=== PATIENT | female | born 1960 | race Caucasian/White ===

== ENCOUNTER 2019-09-17 17:23 | Observation (INO) | payer BC ==
[2019-09-17 18:29] LABS: Hemoglobin 15.3 g/dL (12.0-16.0); Mean Corpuscular Hemoglobin 31.7 pg (27.0-31.0); Mean Corpuscular Volume 90.5 fL (78.0-98.0); RBC Distribution Width 11.5 % (11.5-14.5); Red Blood Cell (RBC) Count 4.84 mill/uL (4.20-5.40); White Blood Cell (WBC) Count 10.7 thou/uL (4.8-10.8)
[2019-09-17 18:30] LABS: #Basophils 0.1 thou/uL (0.0-0.2); #Eosinphils 0.1 thou/uL (0.0-0.7); #Lymphocytes 3.6 thou/uL (1.20-3.40); #Monocytes 0.8 thou/uL (0.11-0.59); #Neutrophils 6.1 thou/uL (1.40-6.50); %Basophils 0.6 % (0.0-1.0); %Eosinophils 0.9 % (0.0-10.0); %Lymphocytes 33.9 % (21.0-51.0); %Monocytes 7.8 % (0.0-10.0); %Neutrophils 56.8 % (42.0-75.0)
[2019-09-17 18:44] LABS: ALT (SGPT) 25 U/L (8-55); AST (SGOT) 23 U/L (5-34); Albumin 4.6 g/dL (3.5-5.0); Alkaline Phosphatase 107 U/L (40-110); Anion Gap 15 mmol/L (10-20); BUN (Urea Nitrogen) 16 mg/dL (9.8-20.1); Bilirubin, Total 0.6 mg/dL (0.2-1.2); Calc. Creatinine Clearance 0 mL/min (70-130); Calcium 9.5 mg/dL (7.8-10.44); Carbon Dioxide 27 mmol/L (22-29); Chloride 105 mmol/L (98-107); Estimated GFR-MDRD 45; Globulin 2.7 g/dL (2.4-3.5); Glucose 86 mg/dL (70-105); Potassium 4.4 mmol/L (3.5-5.1); Protein, Total 7.3 g/dL (6.0-8.3); Sodium 143 mmol/L (136-145)
--- NOTE | 2019-09-17 18:45 | RAD ---
FRONTAL RADIOGRAPH CHEST: Date: 09-17-2019 Comparison: 04-15-12 History: Palpitations, chest pressure. FINDINGS: Heart and mediastinal contours are stable. There is an old right clavicle fracture. No focal consolid ation or alveolar edema. IMPRESSION: No acute findings. POS: TRACIE
[2019-09-17 19:03] LABS: Large Platelets MODERATE; MDiff Complete? YES; Mean Platelet Volume 12.6 fL (7.4-10.4); Platelet Count 107 thou/uL (130-400); Platelet Morphology Comment Appears Decreased; Polychromasia SLIGHT = 2-3 cells (100X) (0-2/hpf)
[2019-09-17] MEDS ORDERED: Aspirin Chewable 81 MG TAB ONE ×2 (20:35→21:07)
[2019-09-17] MEDS ORDERED: Nitroglycerin 0.4 MG TAB (25 Tab Bottle) PO PRN (23:13)
[2019-09-17] MEDS ORDERED: Senokot S 8.6-50 MG TAB PO PRN (23:17)
[2019-09-17] MEDS ORDERED: Acetaminophen 325 MG TAB PO PRN (23:17)
[2019-09-17] MEDS ORDERED: Calcium Carbonate 500 MG ChewTAB PO PRN (23:17)
--- NOTE | 2019-09-17 23:35 | HP ---
PRIMARY CARE: Dr. Viry Moreno. PRIMARY TEACHER LEARNING DISABLED: Dr. Marvin. CHIEF COMPLAINT: Palpitations with chest discomfort. HISTORY OF PRESENT ILLNESS: The patient is a 59-year-old female with hypothyroidism and hyperlipidemia, presented to the emergency room with above complaints. Last summer, the patient had extensive evaluation by Dr. Marvin for palpitations. She had an echocardiogram as well as stress test and event monitor. No etiology of palpitations was identified per patient's report. Since yesterday, the patient has intermittent palpitations which last for a few minutes. She has been feeling lightheaded along with chest pressure during this episode. The palpitations seem to be irregular per the patient's report. She denies any nausea, vomiting, lightheadedness, shortness of breath, fever, or chills. She was driving when she had first episode of palpitation yesterday. No recent changes in her medications. She consumes one cup of coffee every morning, which is unchanged. She denies recent immobilization, travel, fever, or chills. PAST MEDICAL HISTORY: 1. Hyperlipidemia. 2. Hypothyroidism. 3. Extensive workup for palpitations last year. 4. Chronic thrombocytopenia, followed by Dr. Lucas. PAST SURGICAL HISTORY: 1. Left breast lump removal in 1975. 2. Partial cervix removal in 1984. 3. Cholecystectomy. 4. Hysterectomy. 5. Thyroidectomy in 2001 as well as in 2008. ALLERGIES: THE PATIENT IS ALLERGIC TO CODEINE. CURRENT HOME MEDICATIONS: 1. Crestor 10 mg at bedtime. 2. Levothyroxine 125 mcg daily. 3. Multivitamin 1 tablet daily. 4. Nexium 40 mg daily. 5. Vitamin D3 daily. 6. Fish oil daily. SOCIAL HISTORY: The patient currently lives at home. She denies current use of smoking, alcohol, or drug use. FAMILY HISTORY: Positive for heart disease. REVIEW OF SYSTEMS: All other review of systems were reviewed and were found negative. PHYSICAL EXAMINATION: VITAL SIGNS: Showed temperature 97.9, respirations of 19, pulse of 72, blood pressure of 200/86, and O2 saturation 100% on room air. GENERAL: A 59-year-old female, in no apparent distress. No chest discomfort at this time. HEENT: Head, atraumatic and normocephalic. Sclerae anicteric. Moist mucous membranes. No oral lesion. NECK: Supple. No JVD appreciated. No carotid bruit. LUNGS: Clear to auscultation bilaterally. No wheezing, rales, or rhonchi. HEART: S1 and S2 present. Regular rate and rhythm. No rubs or gallops. ABDOMEN: Soft, nontender. Bowel sounds present. EXTREMITIES: No edema or calf tenderness. NEUROLOGIC: Grossly nonfocal. Moves all 4 extremities. PSYCHIATRY: Alert, awake, and oriented x3. SKIN: Warm and dry. LYMPH NODES: No palpable lymph nodes in the neck. PERIPHERAL VASCULAR: Radial pulses palpable bilaterally. MUSCULOSKELETAL: No joint swelling tenderness. LABORATORY FINDINGS: CBC showed WBC 10.7 with hemoglobin 15.3, hematocrit 43.8, and platelets 107. Chemistry showed sodium 143, potassium 4.4, chloride 105, bicarb 27, BUN 16, creatinine 1.22, and glucose of 86. Troponin negative. TSH 1.12. IMAGING STUDIES: Chest x-ray by my review was negative for infiltrate. EKG by my review showed sinus rhythm with left axis deviation without significant ST-T wave changes. IMPRESSION: 1. Palpitations with chest discomfort of unclear etiology, rule out acute coronary syndrome. 2. Mild acute kidney injury on chronic kidney disease, stage 2. 3. Chronic thrombocytopenia. 4. Hyperlipidemia. 5. Hypothyroidism. 6. Family history of heart disease. PLAN: The patient will be monitored on the telemetry unit. We will keep her n.p.o. past midnight. We will consult Cardiology. We will check magnesium. Gentle IV hydration for mild CHIRAG. We will consult Cardiology, Dr. Marvin in a.m. We will resume statins. The patient understands the above plan of care. Job ID: [id number]
[2019-09-18 00:25] VITALS: BMI 30.9
[2019-09-18] MEDS: Sodium Chloride 0.9% 1,000 ML IV SCH ×2 (00:52→17:35)
[2019-09-18] MEDS ORDERED: Levothyroxine Sodium 125 MCG TAB PO SCH (06:00)
--- NOTE | 2019-09-18 09:21 | PDOC.HOSPP ---
- Subjective Encounter Date: 09/18/19 Encounter Time: 09:20 Subjective: pressure chest discomfort - Objective Vital Signs & Weight: Vital Signs (12 hours) Temp Pulse Resp BP Pulse Ox 09/18/19 07:12 97.4 F L 64 16 123/58 L 96 09/18/19 03:48 98.4 F 72 15 109/57 L 97 09/18/19 00:16 98.6 F 70 16 137/60 98 Weight Weight 174 lb 6.4 oz I&O: 09/17/19 09/18/19 09/19/19 06:59 06:59 06:59 Intake Total 608 Output Total 300 Balance 308 Result Diagrams: 09/17/19 18:10 09/17/19 18:10 Hospitalist ROS - Medication Medications: Active Medications Generic Name Dose Route Start Last Admin Trade Name Freq PRN Reason Stop Dose Admin Sodium Chloride 1,000 mls @ 75 mls/hr 09/17/19 23:30 09/18/19 00:52 Normal Saline 0.9% IV 1,000 mls .[id number] JIMBO Administration Levothyroxine Sodium 125 mcg 09/18/19 06:00 09/18/19 05:51 Synthroid PO 125 mcg 0600 JIMBO Administration - Exam General Appearance: awake alert Neck: no JVD Heart: RRR, no murmur Respiratory: CTAB, no wheezes Gastrointestinal: soft, normal bowel sounds Extremities: no edema Hosp A/P (1) Chest pain Code(s): R07.9 - CHEST PAIN, UNSPECIFIED Status: Acute Qualifiers: Chest pain type: precordial pain Qualified Code(s): R07.2 - Precordial pain (2) NSVT (nonsustained ventricular tachycardia) Code(s): I47.2 - VENTRICULAR TACHYCARDIA Status: Acute (3) Acute renal failure Status: Acute (4) Dyslipidemia Code(s): E78.5 - HYPERLIPIDEMIA, UNSPECIFIED Status: Chronic - Plan discussed with Dr Marvin- stress test, echo
[2019-09-18 10:51] LABS: Anion Gap 12 mmol/L (10-20); BUN (Urea Nitrogen) 14 mg/dL (9.8-20.1); Calc. Creatinine Clearance 87 mL/min (70-130); Calcium 8.8 mg/dL (7.8-10.44); Carbon Dioxide 24 mmol/L (22-29); Chloride 109 mmol/L (98-107); Estimated GFR-MDRD 67; Glucose 79 mg/dL (70-105); Potassium 4.2 mmol/L (3.5-5.1); Sodium 141 mmol/L (136-145)
--- NOTE | 2019-09-18 15:23 | NM ---
Radionucleotide stress and rest myocardial perfusion scan with CT attenuation correction and SPECT im aging Left ventricular wall motion evaluation and ejection fraction HISTORY: Chest pain. FINDINGS: Osvaldo protocol. Total test time 6:00. There is homogeneous uptake of radiotracer throughout the left ventricular myocardium. No focal perfu olegario defect or reversibility. QGS analysis of gated SPECT images shows no focal wall motion abnormalities. Lung/heart ratio 40 %. T ID 1.0. Left ventricular ejection fraction calculated at greater than 80%. IMPRESSION: Normal exam.
[2019-09-18 16:11] VITALS: BP 114/56; TEMP 98.2
--- NOTE | 2019-09-18 18:07 | DIS ---
DATE OF ADMISSION: 09/17/2019 DATE OF DISCHARGE: 09/18/2019 PRIMARY CARE PROVIDER: Dr. Viry Moreno. DISPOSITION: Discharged home. FINAL DIAGNOSES: 1. Nonsustained ventricular tachycardia. 2. Noncardiac chest pain. 3. Hypothyroidism. 4. History of arrhythmias. 5. Acute renal failure, resolved. DISCHARGE MEDICINES: 1. Amlodipine 2.5 mg a day. 2. Levothyroxine 125 mcg a day. 3. Crestor 20 mg a day. 4. Vitamin D3. 5. Nexium 40 mg a day. 6. Brownell-3 fatty acids. ALLERGIES: TO CODEINE. CODE STATUS: Full. PENDING AT TIME OF DISCHARGE: Nothing. DIET: Heart-healthy. HOSPITAL COURSE: Consultations; Dr. Maverick Marvin, Cardiology. Procedures, none. The patient admitted with chest tightness, feeling of irregular heartbeat. EKG was unrevealing. Laboratory data; comprehensive metabolic profile initially creatinine 1.22, followup 0.87. Troponins normal x3. TSH 1.12. CBC unremarkable except for platelet count of 107,000. The patient's cardiorespiratory exam was unremarkable. She did have an elevated blood pressure in the emergency room. Her nuclear medicine exercise stress test is normal. Echocardiograms are unremarkable in discussion with Dr. Marvin. She can be discharged today on amlodipine 2.5 mg a day. She is to report to Dr. Marvin's office tomorrow. A Holter monitor will be given to her then. She will return to the office 1 week for that for interpretation of the Holter monitor and further workup. Job ID: [id number]
--- NOTE | 2019-09-18 18:19 | CON ---
DATE OF CONSULTATION: 09/18/2019 REASON FOR CONSULTATION: Palpitations and chest tightness. HISTORY OF PRESENT ILLNESS: Ms. Whiteside is a delightful 59-year-old woman. She has a history previously of premature atrial contractions many years ago, found on the monitor. She has had some intermittent palpitations over the years, but no other arrhythmias have been identified. Last summer, she had a near syncopal episode , but there were no significant dysrhythmias were found on the monitor. The patient on this occasion was admitted with the progressive feeling of her heart beating "just not right." She said she is aware of her heartbeat. She has trouble describing it. She said she did not think it was very fast, but she thinks it was probably irregular. At the time she came to the hospital, it had resolved. In the emergency room, her blood pressure was 200 systolic, but it is in the one teens systolic now. The patient otherwise has been in good physical condition. No chest pain. Just the sensations as outlined above. No recent syncope. No recent near-syncope. She did have near syncope last summer. MEDICATIONS: At home, she was takin. Rosuvastatin. 2. Levothyroxine. 3. Multivitamin. 4. Truman-3 fish oil. ALLERGIES: NONE KNOWN. SOCIAL HISTORY: No alcohol or tobacco. REVIEW OF SYSTEMS: CONSTITUTIONAL: No significant weight gain or loss. VISION: No changes. HEARING: No changes. PULMONARY: No cough or wheezing. GASTROINTESTINAL: No nausea, vomiting, or diarrhea. SKIN: No rashes. NEUROLOGIC: No unilateral weakness or numbness. PSYCHIATRIC: No unusual depression or anxiety. PHYSICAL EXAMINATION: GENERAL: This is a pleasant 59-year-old woman, looks younger than her chronologic age. VITAL SIGNS: Blood pressure 114/56 and pulse 70. LUNGS: Clear. CARDIAC: Normal S1 and normal S2. ABDOMEN: Soft and nontender. EXTREMITIES: No edema. LABORATORY STUDIES: Echocardiogram was normal with a normal ejection fraction. Stress test was normal. She went 6 minutes on a Osvaldo protocol. No arrhythmias. On the monitor, she had one episode of asymptomatic 3-beat ventricular tachycardia, otherwise no dysrhythmias. ASSESSMENT AND PLAN: 1. Palpitations from her history, I suspect could potentially be atrial arrhythmias, that the history suggest atrial fibrillation, but has not been diagnosed yet. 2. Hypertension noted in the emergency room. Blood pressure is high as 200/86. 3. Hypercholesterolemia. Tolerating medicines. 4. Recently diagnosed with low platelet count of unknown etiology. Platelet counts below 100,000 recently. PLAN: 1. I will add amlodipine 2.5 mg a day. 2. Okay to go home and we will give her an event monitor to look for any screening for any atrial arrhythmias. Job ID: [id number] MTDD
[2019-09-18] MEDS ORDERED: Aspirin 81 mg Enteric Coated Tablet PO SCH (21:00)
== END 2019-09-18 18:25 | disposition home or self-care (01) ==
LOC: ERS 17:23 → 2SW 22:41
PROVIDERS: ADMIT Internal Medicine; ATTEND Internal Medicine
DX: I47.2 Ventricular tachycardia (principal); R07.89 Other chest pain; N17.9 Acute kidney failure, unspecified; I12.9 Hypertensive chronic kidney disease with stage 1 through stage 4 chronic kidney disease, or unspecified chronic kidney disease; N18.2 Chronic kidney disease, stage 2 (mild); E78.5 Hyperlipidemia, unspecified; E78.00 Pure hypercholesterolemia, unspecified; E89.0 Postprocedural hypothyroidism; D69.6 Thrombocytopenia, unspecified; Z79.899 Other long term (current) drug therapy; Z82.49 Family history of ischemic heart disease and other diseases of the circulatory system; Z88.5 Allergy status to narcotic agent
CPT/HCPCS: 36415; 71045; 78452; 80048; 80053; 83735; 84443; 84484; 85025; 93005; 93017; 93306; 94760; A9500; G0378

== ENCOUNTER 2019-12-05 10:05 | Outpatient (CLI) | payer BC ==
--- NOTE | 2019-12-05 10:51 | ULT ---
EXAM: US Abdominal CLINICAL HISTORY: Abdominal pain. COMPARISON: None. FINDINGS: Pancreas: The head and proximal pancreatic body have normal echotexture. The remainder the pancreas is obscured by bowel gas IVC: Visualized IVC has a normal caliber. Aorta: Visualized aorta has a normal caliber. Liver:Normal hepatic parenchymal echotexture. No hepatic masses or intrahepatic biliary dilatation. T he contour of the hepatic margin is maintained. Right hepatic lobe measures 15.1 cm Gallbladder: Surgically absent Orta's sign:Not applicable CBD: Common bile duct diameter 0.32 cm Portal vein: Patent. Appropriate directional flow. Right kidney: Normal cortical echotexture. There is right renal cortical thinning. No hydronephrosis. Right kidney measuring 4.0 x 9.7 x 4.4 cm in length. Left kidney: Normal cortical echotexture. There is left renal cortical thinning. No hydronephrosis.. Left kidney measuring 5.1 x 9.3 x 4.7 cm in length Spleen: Multiple echotexture, measuring 9.6 cm in maximum dimension IMPRESSION: 1. Bilateral renal cortical thinning. No hydronephrosis. 2. Normal hepatic parenchymal echotexture.
--- NOTE | 2019-12-05 11:11 | ULT ---
Pelvic sonogram transabdominal imaging HISTORY: Pelvic pain. Prior surgery. FINDINGS: Urinary bladder is incompletely distended. No solid or cystic masses seen within the pelvis. Uterus is surgically absent. Ovaries not seen and also presumed surgically absent. IMPRESSION : Status post hysterectomy. No abnormalities are demonstrated.
== END 2019-12-05 10:06 | disposition home or self-care (01) ==
LOC: SCSULT 10:05
PROVIDERS: ATTEND Internal Medicine Gastroenterology
DX: K21.9 Gastro-esophageal reflux disease without esophagitis (principal); R10.31 Right lower quadrant pain; Z80.0 Family history of malignant neoplasm of digestive organs; N28.89 Other specified disorders of kidney and ureter; Z90.710 Acquired absence of both cervix and uterus
CPT/HCPCS: 76856; 93975

== ENCOUNTER 2020-04-11 13:20 | Outpatient (CLI) | payer BC ==
--- NOTE | 2020-04-11 16:41 | MMO ---
Bilateral MAMMO Bilat Screen [facility]. CLINICAL HISTORY: Patient is 59 years old and is seen for screening. The patient has no family history of breast cancer. The patient has no personal history of cancer. The patient has a history of left Excisional Biopsy in 1975 - Benign. VIEWS: The views performed were: bilateral craniocaudal with tomosynthesis and bilateral mediolateral oblique with tomosynthesis. FILMS COMPARED: The present examination has been compared to prior imaging studies performed at [facility] on 04/03/2016, 01/13/2017, 04/07/2017 and 04/08/2018. This study has been interpreted with the assistance of computer-aided detection. MAMMOGRAM FINDINGS: There are scattered fibroglandular densities. There are no suspicious masses, suspicious calcifications, or new areas of architectural distortion. IMPRESSION: THERE IS NO MAMMOGRAPHIC EVIDENCE OF MALIGNANCY. A ROUTINE FOLLOW-UP MAMMOGRAM IN 1 YEAR IS RECOMMENDED. THE RESULTS OF THIS EXAM WERE SENT TO THE PATIENT. ACR BI-RADS Category 1 - Negative MAMMOGRAPHY NOTE: 1. A negative mammogram report should not delay a biopsy if a dominant of clinically suspicious mass is present. 2. Approximately 10% to 15% of breast cancers are not detected by mammography. 3. Adenosis and dense breasts may obscure an underlying neoplasm. Reported by: ALANA SHARIF MD Electonically Signed: [id number]
== END 2020-04-11 13:21 | disposition home or self-care (01) ==
LOC: BICMAMMO 13:20
PROVIDERS: ATTEND Obstetrics & Gynecology
DX: Z12.31 Encounter for screening mammogram for malignant neoplasm of breast (principal); Z91.89 Other specified personal risk factors, not elsewhere classified
CPT/HCPCS: 77063; 77067

== ENCOUNTER 2021-12-02 08:20 | Outpatient (CLI) | payer BC | END 2021-12-02 08:21 | disposition home or self-care (01) | LOC: BICMAMMO 08:20 | PROVIDERS: ATTEND Obstetrics & Gynecology | DX: Z12.31 Encounter for screening mammogram for malignant neoplasm of breast (principal) | CPT/HCPCS: 77063; 77067 ==